=== PATIENT | female | born 1985 | race Caucasian/White ===

== ENCOUNTER 2018-11-19 22:16 | Inpatient (IN) | payer BC ==
[2018-11-19] MEDS ORDERED: Ampicillin 2 GM AdvVial IV ONE (22:56)
[2018-11-19] MEDS ORDERED: Sodium Chloride 0.9% 100 ML ONE (22:57)
[2018-11-19] MEDS ORDERED: Nalbuphine 20 MG/ML 1 ML Syringe IVPUSH PRN (23:15)
[2018-11-19] MEDS ORDERED: Sodium Chloride 0.9% 10 ML Syringe FLUSH PRN (23:15)
[2018-11-19] MEDS: Lactated Ringers 1,000 ML IV SCH (23:26)
--- NOTE | 2018-11-20 00:12 | PCM.LDHP ---
L&D History of Present Illness - General Date of Service: 11/20/18 Admit Problem/Dx: Admission Diagnosis/Problem Admission Diagnosis/Problem Source of Information: Patient History Limitations: Reports: No Limitations - History of Present Illness Introduction:: Ramila Shah is a 33-year-old 001 at 38 weeks 3 days by LMP consistent with 20 week ultrasound who presents with spontaneous rupture membranes. She reports that she had a large gush of clear fluid at around 9 PM and had continuous leaking of fluid after that initial gush of fluid. She reports that after her water broke she started have contractions that she was feeling about every 8 minutes but they are getting closer and closer together and more painful while she is on labor and delivery. She reports good movement. Timing/Duration: Reports: sudden onset (With large gush of fluid at around 9 PM on 11/19/2018), intermittent (Contractions every 3-8 minutes but getting closer and closer together) Location, : Reports: Lower back, Pelvic, Uterus Quality: Reports: Pressure, Throbbing Severity: Moderate Improves with: Reports: None Worsens with: Reports: None Associated Symptoms: Reports: vaginal fluid, large amount. Denies: vaginal bleeding, vaginal discharge Present Illness Comments:: Ramila Shah is a 33-year-old 001 at 38 weeks 3 days by LMP consistent with 20 week ultrasound who presents with spontaneous rupture membranes. She has had routine care with Dr. Burns and Lidya Garcia starting at 11 weeks gestational age. Her has overall been uncomplicated. She received the flu vaccine in May 2018 and was given TDaP vaccine on 2018. 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 MANAGER History: Reports: : 2 Para: 1 - Past Surgical History GI Surgical History: Reports: Other (See Below) (Anal gland fistulectomy) Endocrine Surgical History: Reports: Thyroidectomy (partial) Social & Family History - Tobacco Use Smoking Status *Q: Never Smoker Tobacco Use Within Last Twelve Months: No - Tobacco Core Measures Tobacco Use/Smoking Within Last 30 Days: No Smokeless Tobacco Use in Last 30 Days: No - Alcohol Use Alcohol Use History: No - Recreational Drug Use Recreational Drug Use: No Drug Use in Last 12 Months: No - Living Situation & Occupation Living situation: Reports: , with Spouse, with Family Occupation: Employed H&P Review of Systems - Review of Systems: Review Of Systems: See Below General: Denies: Fever, Chills, Malaise, Weakness, Fatigue HEENT: Denies: Headaches, Rhinitis, Post Nasal Drip, Sinus Congestion, Sore Throat, Visual Changes Pulmonary: Denies: Shortness of Breath, Wheezing, Cough Cardiovascular: Denies: Chest Pain, Palpitations, Dyspnea on Exertion Gastrointestinal: Denies: Abdominal Pain, Constipation, Diarrhea, Nausea, Vomiting Genitourinary: Denies: Dysuria, Frequency, Burning, Pain, Urgency Musculoskeletal: Denies: Back Pain Skin: Denies: Rash, Lesions Psychiatric: Denies: Depression, Anxiety Neurological: Denies: Headache Hematologic/Lymphatic: Denies: Anemia, Easy Bleeding L&D Exam - Exam Exam: See Below - Vital Signs Weight: 89.358 kg - OB Specific Contraction Duration (sec): 40-60 Contraction Frequency (min): 2-3 Contraction Intensity: Moderate to Strong Movement: Active Heart Tones: Present Heart Tones per Min: 145 (positive 15 x 15 accelerations, intermittent variable and early decelerations) Heart Rate (FHR) Variability: Moderate (6-25 bmp) Presentation: Vertex Estimated Weight: 7-7.5 lbs by Leopolds - Munoz Score Munoz Score Cervix Position: Anterior Munoz Score Consistency: Soft Munoz Score Effacement: >80% (90%) Munoz Score Dilation: > 5 cm (7 cm) Munoz Score 's Station: -3 Munoz Score Total: 10 - Exam General: Alert, Oriented HEENT: Conjunctiva Clear, EOMI Neck: Supple, Trachea Midline Lungs: Clear to Auscultation, Normal Respiratory Effort Cardiovascular: Regular Rate, Regular Rhythm GI/Abdominal Exam: Soft, Non-Tender, No Distention, Other (gravid). No: Guarding, Rigid, Rebound Genitourinary: Normal external exam Extremities: Normal Inspection, No Pedal Edema Skin: Warm, Dry, Intact Psychiatric: Alert, Normal Affect, Normal Mood - Patient Data Lab Results Last 24 hrs: Laboratory Results - last 24 hr 11/19/18 Range/Units 23:25 WBC 12.21 H (3.98-10.04) K/mm3 RBC 3.82 L (3.98-5.22) M/mm3 Hgb 11.8 (11.2-15.7) gm/L Hct 36.3 (34.1-44.9) % MCV 95.0 H (79.4-94.8) fl MCH 30.9 (25.6-32.2) pg MCHC 32.5 (32.2-35.5) g/dl RDW Std Deviation 47.4 H (36.4-46.3) fL Plt Count 218 (182-369) K/mm3 MPV 11.8 (9.4-12.3) fl Result Diagrams: 11/19/18 23:25 - Problem List (1) 38 weeks gestation of SNOMED Code(s): 19946152 ICD Code: Z3A.38 - 38 WEEKS GESTATION OF Status: Acute Current Visit: Yes (2) GBS (group B Streptococcus carrier), +RV culture, currently SNOMED Code(s): 9795534839840, 859572602, 3975565734548 ICD Code: O99.820 - STREPTOCOCCUS B CARRIER STATE COMPLICATING Status: Acute Current Visit: Yes (3) Lichen sclerosus SNOMED Code(s): 64300932 ICD Code: L90.0 - LICHEN SCLEROSUS ET ATROPHICUS Status: Acute Current Visit: Yes Problem List Initiated/Reviewed/Updated: Yes Orders Last 24hrs: Active Orders 24 hr Category Date Time Status Activity as Tolerated [RC] PFP Care 11/19/18 23:15 Active Communication Order [RC] ASDIRECTED Care 11/19/18 23:15 Active Heart Tones [RC] ASDIRECTED Care 11/19/18 23:16 Active Non Stress Test [RC] PER UNIT ROUTINE Care 11/19/18 23:15 Active Notify Provider [RC] PFP Care 11/19/18 23:15 Active Notify Provider [RC] PRN Care 11/19/18 23:15 Active Peripheral IV Care [RC] . DIRECTED Care 11/19/18 23:16 Active Vital Signs [RC] PER UNIT ROUTINE Care 11/19/18 23:15 Active Regular Diet [DIET] Diet 11/20/18 Breakfast Active RAPID PLASMA REAGIN,RPR [CHEM] Routine Lab 11/19/18 23:25 Received Ampicillin 1 gm Med 11/20/18 03:00 Active Sodium Chloride 0.9% [Normal Saline] 100 ml IV Q4H Lactated Ringers [Ringers, Lactated] 1,000 ml Med 11/19/18 23:15 Active IV ASDIRECTED Nalbuphine [Nubain] Med 11/19/18 23:15 Active 10 mg IVPUSH Q2H PRN Sodium Chloride 0.9% [Saline Flush] Med 11/19/18 23:15 Active 10 ml FLUSH ASDIRECTED PRN Electronic Heart Tones Ext w TOCO [WOMSER] Oth 11/19/18 23:15 Ordered Routine Electronic Heart Tones Internal [WOMSER] Per Unit Oth 11/19/18 23:15 Ordered Routine Peripheral IV Insertion Adult [OM.PC] Routine Oth 11/19/18 23:15 Ordered Resuscitation Status Routine Resus Stat 11/19/18 23:15 Ordered Medication Orders Ampicillin Sodium 1 gm/ Sodium (Chloride) 100 mls @ 200 mls/hr IV Q4H AVI Lactated Ringer's (Ringers, Lactated) 1,000 mls @ 100 mls/hr IV ASDIRECTED AVI Last Admin: 11/19/18 23:26 Dose: 100 mls/hr Nalbuphine HCl (Nubain) 10 mg IVPUSH Q2H PRN PRN Reason: pain Sodium Chloride (Saline Flush) 10 ml FLUSH ASDIRECTED PRN PRN Reason: Keep Vein Open Assessment/Plan Comment:: Refer to observation for spontaneous rupture of membranes Start Pitocin for augmentation of labor if contractions begin to space out or slowing of cervical dilation Continuous monitoring Place IV and have Lactated Ringer's at 125 ml/hr May have small amounts of regular diet Activity as tolerated May have epidural as desired Plans to breast-feed after delivery Start on ampicillin 2 g now and have 1 g every 4 hours after for GBS prophylaxis Anticipate vaginal delivery unless otherwise indicated Paddy Tinsley M.D. 12:20 AM 11/20/2018
[2018-11-20] MEDS ORDERED: fentaNYL 100 MCG/2 ML SDV EPIDUR PRN (00:19)
[2018-11-20] MEDS ORDERED: ePHEDrine 50 MG/ML SDV IVPUSH PRN (00:19)
[2018-11-20] MEDS ORDERED: diphenhydrAMINE 50 MG/ML SDV IVPUSH PRN (00:19)
[2018-11-20] MEDS ORDERED: fentaNYL/Bupivacaine-NS 2 MCG/ML-0.125%/PF 100 ML Bag EPIDUR SCH (00:30)
--- NOTE | 2018-11-20 00:45 | PCM.PREANE ---
Preanesthetic Assessment - Anesthesia/Transfusion/Family Hx Anesthesia History: Prior Anesthesia Without Reaction Family History of Anesthesia Reaction: No Transfusion History: No Prior Transfusion(s) - Review of Systems General: No Symptoms Pulmonary: No Symptoms Cardiovascular: No Symptoms Gastrointestinal: Abdominal Pain Neurological: No Symptoms Other: Reports: None - Physical Assessment Pulse: 89 O2 Sat by Pulse Oximetry: 98 Respiratory Rate: 22 Blood Pressure: 136/45 Temperature: 36.3 C Height: 1.55 m Weight: 89.358 kg ASA Class: 2 Mental Status: Alert & Oriented x3 Airway Class: Mallampati = 1 Dentition: Reports: Normal Dentition Thyro-Mental Finger Breadths: 3 Mouth Opening Finger Breadths: 3 ROM/Head Extension: Full Lungs: Clear to Auscultation, Normal Respiratory Effort Cardiovascular: Regular Rate, Regular Rhythm - Lab Values: Laboratory Last Values WBC 12.21 K/mm3 (3.98-10.04) H 11/19/18 23:25 RBC 3.82 M/mm3 (3.98-5.22) L 11/19/18 23:25 Hgb 11.8 gm/L (11.2-15.7) 11/19/18 23:25 Hct 36.3 % (34.1-44.9) 11/19/18 23:25 MCV 95.0 fl (79.4-94.8) H 11/19/18 23:25 MCH 30.9 pg (25.6-32.2) 11/19/18 23:25 MCHC 32.5 g/dl (32.2-35.5) 11/19/18 23:25 RDW Std Deviation 47.4 fL (36.4-46.3) H 11/19/18 23:25 Plt Count 218 K/mm3 (182-369) 11/19/18 23:25 MPV 11.8 fl (9.4-12.3) 11/19/18 23:25 - Allergies Allergies/Adverse Reactions: Allergies Allergy/AdvReac Type Severity Reaction Status Date / Time No Known Allergies Allergy Verified 11/19/18 23:14 - Anesthesia Plan Pre-Op Medication Ordered: None - Acknowledgements Anesthesia Type Planned: Spinal Pt an Appropriate Candidate for the Planned Anesthesia: Yes Alternatives and Risks of Anesthesia Discussed w Pt/Guardian: Yes Pt/Guardian Understands and Agrees with Anesthesia Plan: Yes PreAnesthesia Questionnaire - Past Health History Medical/Surgical History: Denies Medical/Surgical History Gastrointestinal History: Reports: GERD Genitourinary History: Reports: Other (See Below) (Lichen sclerosis) Other Genitourinary History: After last delivery she was unable to fully empty bladder, pt went home with an indwelling cath and leg bag. After 5 days the indwelling cath was removed and pt. 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: Reports: - Past Surgical History GI Surgical History: Reports: Other (See Below) (Anal gland fistulectomy) Endocrine Surgical History: Reports: Thyroidectomy (partial) - SUBSTANCE USE Smoking Status *Q: Never Smoker Tobacco Use Within Last Twelve Months: No Recreational Drug Use History: No - CURRENT (IN HOUSE) MEDS Current Meds: Current Medications Diphenhydramine HCl (Benadryl) 25 mg IVPUSH Q6H PRN PRN Reason: Itching Ephedrine Sulfate (Ephedrine Sulfate) 5 mg IVPUSH ASDIRECTED PRN PRN Reason: HYPOTENTSION Fentanyl (Sublimaze) 100 mcg EPIDUR Q3H PRN PRN Reason: Pain Fentanyl/Bupivacaine HCl (Eedkffqm-Apwef-Zb 2 Mcg/Ml-0.125%) 100 ml EPIDUR ASDIRECTED AVI Ampicillin Sodium 1 gm/ Sodium (Chloride) 100 mls @ 200 mls/hr IV Q4H AVI Lactated Ringer's (Ringers, Lactated) 1,000 mls @ 100 mls/hr IV ASDIRECTED AVI Last Admin: 11/19/18 23:26 Dose: 100 mls/hr Nalbuphine HCl (Nubain) 10 mg IVPUSH Q2H PRN PRN Reason: pain Sodium Chloride (Saline Flush) 10 ml FLUSH ASDIRECTED PRN PRN Reason: Keep Vein Open Discontinued Medications Ampicillin Sodium (Ampicillin) Confirm Administered Dose 2 gm IV .STK-MED ONE Stop: 11/19/18 22:57 Last Admin: 11/19/18 23:08 Dose: 2 gm Sodium Chloride (Normal Saline) Confirm Administered Dose 100 mls @ as directed .ROUTE .STK-MED ONE Stop: 11/19/18 22:58 Last Admin: 11/19/18 23:08 Dose: 100 mls/hr
[2018-11-20] MEDS: Lactated Ringers 1,000 ML IV SCH (00:51)
[2018-11-20] MEDS ORDERED: Oxytocin/Lactated Ringers 10 UNIT/1,000 ML BAG IV ONE (01:37)
[2018-11-20] MEDS ORDERED: Lidocaine 1% 50 ML MDV ONE ×2 (01:53→02:31)
[2018-11-20] MEDS ORDERED: Oxytocin 10 Units/1 ML SDV ONE (02:03)
[2018-11-20] MEDS ORDERED: Ampicillin 1 GM in Sodium Chloride 0.9% 100 ML IV SCH (03:00)
--- NOTE | 2018-11-20 03:32 | PCM.DEL ---
L & D Note - General Info Date of Service: 11/20/18 Mother's Due Date: 12/01/18 - Delivery Note Labor: Spontaneous Delivery Outcome: Livebirth Infant Delivery Method: Spontaneous Vaginal Delivery-Single Presentation: Right Occiput Anterior (KEREN) Nuchal Cord: None Anesthesia Type: Local, Spinal Anesthetic: Lidocaine (Xylocaine) 1% Plain Local Anesthetic Volume: Other (30 mL) Amniotic Fluid Description: Clear Episiotomy Type: None Laceration: 2nd Degree (midline perineal repaired with 3-0 Vicryl), Periurethral (bilateral with 2 interrupted sutures of 3-0 Vicryl on the right, running 4-0 Vicryl for mucosa bilaterally) Placenta: Intact, Spontaneous Cord: 3 Vessels Estimated Blood Loss: 400 : Suctioned, Bulb Syringe, Stimulated, Warmed, [place] Used Provider: Paddy Tinsley Score 1 min: 8 Score 5 min: 9 Second Stage Interventions: Reports: Pushing Effectively, Pushing, Knee Chest Position, Pushing, Pulls Own Legs Back Delivery Comments (Free Text/Narrative):: Stage I: Ramila Shah was admitted for spontaneous rupture of membranes with clear fluid. On admission her cervix was dilated to 6 cm. She was GBS positive and was started on ampicillin for GBS prophylaxis. She received 1 dose prior to delivery. She was given a spinal injection for anesthesia. She progressed to complete and pushing. During pushing she had injection of the midline perineum with 1% lidocaine. Stage II: On 11/20/2018 she had a normal vaginal delivery of a live female infant at 0156. Apgars of 8 & 9. Weight of 3690 g (8 lbs 2.2 oz). Length of 20 inches. There was no nuchal cord. was delivered in KEREN position. The cord was doubly clamped and cut by myself. Infant was placed on mother's abdomen. Stage III: She had a spontaneous delivery of an intact placenta in Reed presentation. Three vessel cord. She was given 10 units pitocin IM due to loss of the IV during the pushing process and fundal massage. She had a second- degree midline perineal laceration that was repaired with 3-0 Vicryl. She had bilateral periurethral lacerations. The right side laceration was repaired with 2 interrupted sutures of 3-0 Vicryl to reapproximate the tissue to close, the space that was present between the edges of the laceration. The mucosa was then reapproximated using running sutures with 4-0 Vicryl. The left side laceration was then repaired with running sutures of 4-0 Vicryl. All of the lacerations were hemostatic at the end of the procedure. Mom and baby were stable to recovery. EBL of 400 mL. Paddy Tinsley MD 3:23 AM 11/20/2018 - General Info Date of Service: 11/20/18 - Patient Data Vitals - Most Recent: Last Vital Signs Temp 36.3 C 11/20/18 00:44 Pulse 89 11/20/18 00:44 Resp 22 H 11/20/18 00:44 BP 136/45 L 11/20/18 00:44 Pulse Ox 98 11/20/18 00:44 Weight - Most Recent: 89.358 kg Lab Results Last 24 Hours: Laboratory Results - last 24 hr 11/19/18 Range/Units 23:25 WBC 12.21 H (3.98-10.04) K/mm3 RBC 3.82 L (3.98-5.22) M/mm3 Hgb 11.8 (11.2-15.7) gm/L Hct 36.3 (34.1-44.9) % MCV 95.0 H (79.4-94.8) fl MCH 30.9 (25.6-32.2) pg MCHC 32.5 (32.2-35.5) g/dl RDW Std Deviation 47.4 H (36.4-46.3) fL Plt Count 218 (182-369) K/mm3 MPV 11.8 (9.4-12.3) fl Med Orders - Current: Current Medications Diphenhydramine HCl (Benadryl) 25 mg IVPUSH Q6H PRN PRN Reason: Itching Ephedrine Sulfate (Ephedrine Sulfate) 5 mg IVPUSH ASDIRECTED PRN PRN Reason: HYPOTENTSION Fentanyl (Sublimaze) 100 mcg EPIDUR Q3H PRN PRN Reason: Pain Fentanyl/Bupivacaine HCl (Hdksbqwi-Hsfdo-So 2 Mcg/Ml-0.125%) 100 ml EPIDUR ASDIRECTED AVI Ampicillin Sodium 1 gm/ Sodium (Chloride) 100 mls @ 200 mls/hr IV Q4H AVI Lactated Ringer's (Ringers, Lactated) 1,000 mls @ 100 mls/hr IV ASDIRECTED AVI Last Admin: 11/20/18 00:51 Dose: 100 mls/hr Nalbuphine HCl (Nubain) 10 mg IVPUSH Q2H PRN PRN Reason: pain Sodium Chloride (Saline Flush) 10 ml FLUSH ASDIRECTED PRN PRN Reason: Keep Vein Open Discontinued Medications Ampicillin Sodium (Ampicillin) Confirm Administered Dose 2 gm IV .STK-MED ONE Stop: 11/19/18 22:57 Last Admin: 11/19/18 23:08 Dose: 2 gm Sodium Chloride (Normal Saline) Confirm Administered Dose 100 mls @ as directed .ROUTE .STK-MED ONE Stop: 11/19/18 22:58 Last Admin: 11/19/18 23:08 Dose: 100 mls/hr Oxytocin/Lactated Ringer's (Pitocin In Lr 10 Units/1,000 Ml) Confirm Administered Dose 10 unit in 1,000 mls @ as directed IV .STK-MED ONE Stop: 11/20/18 01:38 Lidocaine HCl (Xylocaine 1%) Confirm Administered Dose 50 ml .ROUTE .STK-MED ONE Stop: 11/20/18 01:54 Lidocaine HCl (Xylocaine 1%) Confirm Administered Dose 50 ml .ROUTE .STK-MED ONE Stop: 11/20/18 02:32 Oxytocin (Pitocin) Confirm Administered Dose 10 unit .ROUTE .STK-MED ONE Stop: 11/20/18 02:04 - Problem List & Annotations (1) 38 weeks gestation of SNOMED Code(s): 18589966 Code(s): Z3A.38 - 38 WEEKS GESTATION OF Status: Acute Current Visit: Yes (2) GBS (group B Streptococcus carrier), +RV culture, currently SNOMED Code(s): 7136819222703, 246056343, 4122394849594 Code(s): O99.820 - STREPTOCOCCUS B CARRIER STATE COMPLICATING Status: Acute Current Visit: Yes (3) Lichen sclerosus SNOMED Code(s): 53238158 Code(s): L90.0 - LICHEN SCLEROSUS ET ATROPHICUS Status: Acute Current Visit: Yes (4) Vaginal delivery SNOMED Code(s): 318039046 Code(s): O80 - ENCOUNTER FOR FULL-TERM UNCOMPLICATED DELIVERY Status: Acute Current Visit: Yes (5) Second degree perineal laceration during delivery SNOMED Code(s): 2773393 Code(s): O70.1 - SECOND DEGREE PERINEAL LACERATION DURING DELIVERY Status: Acute Current Visit: Yes (6) Laceration of periurethral tissue with delivery SNOMED Code(s): 472132630, 548046062 Code(s): O71.89 - OTHER SPECIFIED OBSTETRIC TRAUMA Status: Acute Current Visit: Yes - Problem List Review Problem List Initiated/Reviewed/Updated: Yes - My Orders Last 24 Hours: My Active Orders 11/19/18 23:15 Activity as Tolerated [RC] PFP Communication Order [RC] ASDIRECTED Notify Provider [RC] PFP Notify Provider [RC] PRN Vital Signs [RC] PER UNIT ROUTINE Lactated Ringers [Ringers, Lactated] 1,000 ml IV ASDIRECTED Nalbuphine [Nubain] 10 mg IVPUSH Q2H PRN Sodium Chloride 0.9% [Saline Flush] 10 ml FLUSH ASDIRECTED PRN Electronic Heart Tones Ext w TOCO [WOMSER] Routine Electronic Heart Tones Internal [WOMSER] Per Unit Routine Peripheral IV Insertion Adult [OM.PC] Routine Resuscitation Status Routine 11/19/18 23:16 Peripheral IV Care [RC] Q2HR 11/19/18 23:25 RAPID PLASMA REAGIN,RPR [CHEM] Routine 11/20/18 03:00 Ampicillin 1 gm Sodium Chloride 0.9% [Normal Saline] 100 ml IV Q4H 11/20/18 Breakfast Regular Diet [DIET] - Plan Plan:: Admit to inpatient following normal spontaneous vaginal delivery Continue Pitocin per unit protocol following delivery of placenta and lactated Ringer's until tolerating regular diet Regular diet Vitals per unit routine Ibuprofen and Tylenol for pain control Assist with breast-feeding as needed Continue to monitor lochia Monitor for normal urination due to bilateral periurethral lacerations Anticipate discharge home on day #2 due to receiving 1 dose of antibiotics with GBS positive status for closer monitoring of infant Paddy Tinsley MD 3:23 AM 11/20/2018
[2018-11-20] MEDS ORDERED: Benzocaine/Menthol 20%-0.5% Spray 56 GM Canister TOP PRN (03:44)
[2018-11-20] MEDS ORDERED: Lanolin 100% Cream 7 GM Tube TOP PRN (03:44)
[2018-11-20] MEDS ORDERED: Oxytocin 10 Units/1 ML SDV IM ONE (03:44)
[2018-11-20] MEDS ORDERED: Magnesium Hydroxide 400 MG/5 ML Susp 30 ML Cup PO PRN (03:44)
[2018-11-20] MEDS ORDERED: Hydrocortisone Acetate 25 MG Supp RECTAL PRN (03:44)
[2018-11-20] MEDS ORDERED: Witch Hazel Medicated Pads 40/Jar TOP PRN (03:44)
[2018-11-20] MEDS: Docusate Sodium 100 MG Cap PO PRN ×2 (04:02→19:06)
[2018-11-20] MEDS: Ibuprofen 600 MG Tab PO PRN ×4 (04:03→21:48)
[2018-11-20] MEDS: Acetaminophen 325 MG Tab PO PRN ×2 (07:16→19:06)
--- NOTE | 2018-11-20 08:42 | PCM48HPAN ---
Post Anesthesia Note - EVALUATION WITHIN 48HRS OF ANESTHETIC Vital Signs in Normal Range: Yes Patient Participated in Evaluation: Yes Respiratory Function Stable: Yes Airway Patent: Yes Cardiovascular Function Stable: Yes Hydration Status Stable: Yes Pain Control Satisfactory: Yes Nausea and Vomiting Control Satisfactory: Yes Mental Status Recovered: Yes - COMMENTS/OBSERVATIONS Free Text/Narrative:: Patient has been up ambulating. No complications noted. No further questions at this time.
[2018-11-20] MEDS: Prenatal Multivitamin with Calcium/Folic Acid/Iron Tab PO SCH (09:45)
[2018-11-20] MEDS ORDERED: Bupivacaine 0.25% 10 ML SDV ONE (16:00)
[2018-11-21] MEDS: Acetaminophen 325 MG Tab PO PRN (01:18)
[2018-11-21] MEDS: Ibuprofen 600 MG Tab PO PRN ×2 (04:00→20:08)
--- NOTE | 2018-11-21 07:11 | PCM.PNPP ---
- General Info Date of Service: 11/21/18 Functional Status: Reports: Pain Controlled, Tolerating Diet, Ambulating, Urinating - Review of Systems General: Reports: No Symptoms Pulmonary: Reports: No Symptoms Cardiovascular: Reports: No Symptoms Gastrointestinal: Reports: No Symptoms Genitourinary: Reports: No Symptoms Musculoskeletal: Reports: No Symptoms Neurological: Reports: No Symptoms - Patient Data Vital Signs - Most Recent: Last Vital Signs Temp 37.4 C 11/21/18 03:59 Pulse 77 11/21/18 03:59 Resp 14 11/21/18 03:59 BP 111/68 11/21/18 03:59 Pulse Ox 99 11/21/18 03:59 Weight - Most Recent: 89.358 kg I&O - Last 24 Hours: Intake & Output 11/20/18 11/21/18 11/21/18 22:59 06:59 14:59 Intake Total 240 Balance 240 Lab Results - Last 24 Hours: Laboratory Results - last 24 hr 11/19/18 11/20/18 Range/Units 23:25 10:04 WBC 16.57 H (3.98-10.04) K/mm3 RBC 3.71 L (3.98-5.22) M/mm3 Hgb 11.4 (11.2-15.7) gm/L Hct 35.3 (34.1-44.9) % MCV 95.1 H (79.4-94.8) fl MCH 30.7 (25.6-32.2) pg MCHC 32.3 (32.2-35.5) g/dl RDW Std Deviation 48.0 H (36.4-46.3) fL Plt Count 211 (182-369) K/mm3 MPV 11.3 (9.4-12.3) fl Neut % (Auto) 84.6 H (34.0-71.1) % Lymph % (Auto) 8.4 L (19.3-51.7) % [place]cock % (Auto) 6.7 (4.7-12.5) % Eos % (Auto) 0 L (0.7-5.8) Baso % (Auto) 0.1 (0.1-1.2) % Neut # (Auto) 14.01 H (1.56-6.13) K/mm3 Lymph # (Auto) 1.40 (1.18-3.74) K/mm3 [place] # (Auto) 1.11 H (0.24-0.36) K/mm3 Eos # (Auto) 0.00 L (0.04-0.36) K/mm3 Baso # (Auto) 0.02 (0.01-0.08) K/mm3 Manual Slide Review Normal smear RPR Non-reactive (NONREACTIVE) Med Orders - Current: Current Medications Acetaminophen (Tylenol) 650 mg PO Q6H PRN PRN Reason: mild pain or fever Last Admin: 11/21/18 01:18 Dose: 650 mg Benzocaine/Menthol (Dermoplast Pain Relief [place]) 0 gm TOP ASDIRECTED PRN PRN Reason: Perineal Comfort Measure Last Admin: 11/20/18 04:01 Dose: 1 can Docusate Sodium (Colace) 100 mg PO BID PRN PRN Reason: Constipation Last Admin: 11/20/18 19:06 Dose: 100 mg Emollient Ointment (Lansinoh Hpa) 0 gm TOP ASDIRECTED PRN PRN Reason: Sore Nipples Hydrocortisone Acetate (Anucort-Hc) 25 mg RECTAL BID PRN PRN Reason: Hemorrhoid pain Ibuprofen (Motrin) 600 mg PO Q6H PRN PRN Reason: Mild pain or fever Last Admin: 11/21/18 04:00 Dose: 600 mg Magnesium Hydroxide (Milk Of Magnesia) 30 ml PO BEDTIME PRN PRN Reason: Constipation Prenat Multivit/[place]/Iron/Folic Ac ( Plus Iron) 1 each PO DAILY [facility] Last Admin: 11/20/18 09:45 Dose: Not Given Jaren Uriostegui (Neo) 1 pad TOP ASDIRECTED PRN PRN Reason: Perineal Comfort Measure Last Admin: 11/20/18 04:01 Dose: 1 bottle Discontinued Medications Ampicillin Sodium (Ampicillin) Confirm Administered Dose 2 gm IV .STK-MED ONE Stop: 11/19/18 22:57 Last Admin: 11/19/18 23:08 Dose: 2 gm Diphenhydramine HCl (Benadryl) 25 mg IVPUSH Q6H PRN PRN Reason: Itching Ephedrine Sulfate (Ephedrine Sulfate) 5 mg IVPUSH ASDIRECTED PRN PRN Reason: HYPOTENTSION Fentanyl (Sublimaze) 100 mcg EPIDUR Q3H PRN PRN Reason: Pain Fentanyl/Bupivacaine HCl (Oolmbazh-Ejyvx-Jk 2 Mcg/Ml-0.125%) 100 ml EPIDUR ASDIRECTED [facility] Sodium Chloride (Normal Saline) Confirm Administered Dose 100 mls @ as directed .ROUTE .STK-MED ONE Stop: 11/19/18 22:58 Last Admin: 11/19/18 23:08 Dose: 100 mls/hr Ampicillin Sodium 1 gm/ Sodium (Chloride) 100 mls @ 200 mls/hr IV Q4H [facility] Last Admin: 11/20/18 05:16 Dose: Not Given Lactated Ringer's (Ringers, Lactated) 1,000 mls @ 100 mls/hr IV ASDIRECTED [facility] Last Admin: 11/20/18 00:51 Dose: 100 mls/hr Oxytocin/Lactated Ringer's (Pitocin In Lr 10 Units/1,000 Ml) Confirm Administered Dose 10 unit in 1,000 mls @ as directed IV .STK-MED ONE Stop: 11/20/18 01:38 Last Admin: 11/20/18 02:05 Dose: Not Given Lidocaine HCl (Xylocaine 1%) Confirm Administered Dose 50 ml .ROUTE .STK-MED ONE Stop: 11/20/18 01:54 Last Admin: 11/20/18 02:00 Dose: 50 ml Lidocaine HCl (Xylocaine 1%) Confirm Administered Dose 50 ml .ROUTE .STK-MED ONE Stop: 11/20/18 02:32 Last Admin: 11/20/18 02:35 Dose: 50 ml Nalbuphine HCl (Nubain) 10 mg IVPUSH Q2H PRN PRN Reason: pain Oxytocin (Pitocin) Confirm Administered Dose 10 unit .ROUTE .STK-MED ONE Stop: 11/20/18 02:04 Last Admin: 11/20/18 02:18 Dose: 10 unit Oxytocin (Pitocin) 10 unit IM ONETIME ONE Stop: 11/20/18 03:45 Sodium Chloride (Saline Flush) 10 ml FLUSH ASDIRECTED PRN PRN Reason: Keep Vein Open - Infant Interaction Disposition, : [place] in Room with Family Infant Interaction: Holding Infant Infant Feeding: Attempted ; Nursed Fair/Poor Support Person: - Recovery Exam Fundal Tone: Firm Fundal Level: 3 Fingerbreadths Below Umbilicus Fundal Placement: Midline Lochia Amount: Small Lochia Color: Rubra/Red Perineum Description: Edematous, Other (see below) Other Perinuem Description: 2nd degree lac w/repair Episiotomy/Laceration: Approximated Bladder Status: Nonpalpable, Voiding Urinary Elimination: Voided - Exam General: Alert, Oriented, Cooperative GI/Abdominal Exam: Soft, Non-Tender Extremities: Normal Inspection Skin: Warm, Dry, Intact - Problem List & Annotations (1) 38 weeks gestation of SNOMED Code(s): 79126731 Code(s): Z3A.38 - 38 WEEKS GESTATION OF Status: Acute Current Visit: Yes (2) GBS (group B Streptococcus carrier), +RV culture, currently SNOMED Code(s): 4692145216741, 620488764, 5441819443325 Code(s): O99.820 - STREPTOCOCCUS B CARRIER STATE COMPLICATING Status: Acute Current Visit: Yes - Problem List Review Problem List Initiated/Reviewed/Updated: Yes - Assessment Assessment:: PPD#1 from - Plan Plan:: * Routine cares * Encourage breast feeding * Discharge home tomorrow
[2018-11-21] MEDS: Prenatal Multivitamin with Calcium/Folic Acid/Iron Tab PO SCH (08:17)
[2018-11-21] MEDS: Docusate Sodium 100 MG Cap PO PRN (23:22)
--- NOTE | 2018-11-22 06:29 | PCM.PNPP ---
- General Info Date of Service: 11/22/18 Functional Status: Reports: Pain Controlled, Tolerating Diet, Ambulating, Urinating - Review of Systems General: Reports: No Symptoms Pulmonary: Reports: No Symptoms Cardiovascular: Reports: No Symptoms Gastrointestinal: Reports: No Symptoms Genitourinary: Reports: No Symptoms Musculoskeletal: Reports: No Symptoms Neurological: Reports: No Symptoms - Patient Data Vital Signs - Most Recent: Last Vital Signs Temp 37.3 C 11/22/18 05:13 Pulse 79 11/22/18 05:13 Resp 14 11/22/18 05:13 BP 124/71 11/22/18 05:13 Pulse Ox 95 11/22/18 05:13 Weight - Most Recent: 89.358 kg I&O - Last 24 Hours: Intake & Output 11/21/18 11/21/18 11/22/18 14:59 22:59 06:59 Intake Total 120 Balance 120 Med Orders - Current: Current Medications Acetaminophen (Tylenol) 650 mg PO Q6H PRN PRN Reason: mild pain or fever Last Admin: 11/21/18 01:18 Dose: 650 mg Benzocaine/Menthol (Dermoplast Pain Relief [place]) 0 gm TOP ASDIRECTED PRN PRN Reason: Perineal Comfort Measure Last Admin: 11/20/18 04:01 Dose: 1 can Docusate Sodium (Colace) 100 mg PO BID PRN PRN Reason: Constipation Last Admin: 11/21/18 23:22 Dose: 100 mg Emollient Ointment (Lansinoh Hpa) 0 gm TOP ASDIRECTED PRN PRN Reason: Sore Nipples Hydrocortisone Acetate (Anucort-Hc) 25 mg RECTAL BID PRN PRN Reason: Hemorrhoid pain Ibuprofen (Motrin) 600 mg PO Q6H PRN PRN Reason: Mild pain or fever Last Admin: 11/21/18 20:08 Dose: 600 mg Magnesium Hydroxide (Milk Of Magnesia) 30 ml PO BEDTIME PRN PRN Reason: Constipation Prenat Multivit/[place]/Iron/Folic Ac ( Plus Iron) 1 each PO DAILY [facility]I Last Admin: 11/21/18 08:17 Dose: Not Given [place] G[place] (Tucks) 1 pad TOP ASDIRECTED PRN PRN Reason: Perineal Comfort Measure Last Admin: 11/20/18 04:01 Dose: 1 bottle Discontinued Medications Ampicillin Sodium (Ampicillin) Confirm Administered Dose 2 gm IV .STK-MED ONE Stop: 11/19/18 22:57 Last Admin: 11/19/18 23:08 Dose: 2 gm Diphenhydramine HCl (Benadryl) 25 mg IVPUSH Q6H PRN PRN Reason: Itching Ephedrine Sulfate (Ephedrine Sulfate) 5 mg IVPUSH ASDIRECTED PRN PRN Reason: HYPOTENTSION Fentanyl (Sublimaze) 100 mcg EPIDUR Q3H PRN PRN Reason: Pain Fentanyl/Bupivacaine HCl (Arqvydia-Wbssp-Kv 2 Mcg/Ml-0.125%) 100 ml EPIDUR ASDIRECTED [facility] Sodium Chloride (Normal Saline) Confirm Administered Dose 100 mls @ as directed .ROUTE .STTastemaker-MED ONE Stop: 11/19/18 22:58 Last Admin: 11/19/18 23:08 Dose: 100 mls/hr Ampicillin Sodium 1 gm/ Sodium (Chloride) 100 mls @ 200 mls/hr IV Q4H [facility] Last Admin: 11/20/18 05:16 Dose: Not Given Lactated Ringer's (Ringers, Lactated) 1,000 mls @ 100 mls/hr IV ASDIRECTED [facility] Last Admin: 11/20/18 00:51 Dose: 100 mls/hr Oxytocin/Lactated Ringer's (Pitocin In Lr 10 Units/1,000 Ml) Confirm Administered Dose 10 unit in 1,000 mls @ as directed IV .STTastemaker-MED ONE Stop: 11/20/18 01:38 Last Admin: 11/20/18 02:05 Dose: Not Given Lidocaine HCl (Xylocaine 1%) Confirm Administered Dose 50 ml .ROUTE .STK-MED ONE Stop: 11/20/18 01:54 Last Admin: 11/20/18 02:00 Dose: 50 ml Lidocaine HCl (Xylocaine 1%) Confirm Administered Dose 50 ml .ROUTE .STK-MED ONE Stop: 11/20/18 02:32 Last Admin: 11/20/18 02:35 Dose: 50 ml Nalbuphine HCl (Nubain) 10 mg IVPUSH Q2H PRN PRN Reason: pain Oxytocin (Pitocin) Confirm Administered Dose 10 unit .ROUTE .STK-MED ONE Stop: 11/20/18 02:04 Last Admin: 11/20/18 02:18 Dose: 10 unit Oxytocin (Pitocin) 10 unit IM ONETIME ONE Stop: 11/20/18 03:45 Sodium Chloride (Saline Flush) 10 ml FLUSH ASDIRECTED PRN PRN Reason: Keep Vein Open - Interaction Infant Disposition, : in Room with Family Infant Interaction: Holding Infant Infant Feeding: Attempted ; Nursed Fair/Poor Support Person: - Recovery Exam Fundal Tone: Firm Fundal Level: 2 Fingerbreadths Below Umbilicus Fundal Placement: Midline Lochia Amount: Scant, Small Lochia Color: Rubra/Red Perineum Description: Other (see below) Other Perinuem Description: 2nd degree lac w/repair Episiotomy/Laceration: Approximated Bladder Status: Nonpalpable, Voiding Urinary Elimination: Voided - Exam General: Alert, Oriented, Cooperative GI/Abdominal Exam: Soft, Non-Tender Extremities: Normal Inspection Skin: Warm, Dry, Intact - Problem List & Annotations (1) 38 weeks gestation of SNOMED Code(s): 32314301 Code(s): Z3A.38 - 38 WEEKS GESTATION OF Status: Acute Current Visit: Yes (2) GBS (group B Streptococcus carrier), +RV culture, currently SNOMED Code(s): 2624890349150, 259582656, [id number] Code(s): O99.820 - STREPTOCOCCUS B CARRIER STATE COMPLICATING Status: Acute Current Visit: Yes - Problem List Review Problem List Initiated/Reviewed/Updated: Yes - Assessment Assessment:: PPD#2 from - Plan Plan:: * Routine cares * Encourage breast feeding * Discharge home today
--- NOTE | 2018-11-22 06:32 | PCM.DCSUM1 ---
Discharge Summary - Discharge Data Discharge Date: 11/22/18 Discharge Disposition: Home, Self-Care 01 Condition: Good - Discharge Diagnosis/Problem(s) (1) 38 weeks gestation of SNOMED Code(s): 34137359 ICD Code: Z3A.38 - 38 WEEKS GESTATION OF Status: Acute Current Visit: Yes (2) GBS (group B Streptococcus carrier), +RV culture, currently SNOMED Code(s): 2820167420256, 259279935, 4093710201686 ICD Code: O99.820 - STREPTOCOCCUS B CARRIER STATE COMPLICATING Status: Acute Current Visit: Yes - Patient Summary/Data Complications: None Consults: None Recommended Follow-up Testing/Procedures: Follow up in 2 weeks for check Hospital Course: 33 y/o presented at 38 3/7 wks with SROM. She progressed well and underwent an uncomplicated . See delivery note for full details. she did well and was discharged home on PPD#2 - Patient Instructions Diet: Regular Diet as Tolerated Activity: As Tolerated Activity, Other: Pelvic Rest for 6 weeks Driving: May Drive Today Showering/Bathing: May Shower Showering/Bathing, Other: May bathe Notify Provider of: Fever, Increased Pain, Swelling and Redness, Drainage, Nausea and/or Vomiting - Discharge Plan *PRESCRIPTION DRUG MONITORING PROGRAM REVIEWED*: Not Applicable *COPY OF PRESCRIPTION DRUG MONITORING REPORT IN PATIENT ANGELINA: Not Applicable Home Medications: Home Meds Pnv No.95/Ferrous Fum/Folic AC [ Caplet] 1 each PO 11/20/18 [History] Docusate Sodium [Colace] 100 mg PO BID PRN cap 11/22/18 [Rx] Ibuprofen [Motrin] 600 mg PO Q6H PRN tablet 11/22/18 [Rx] Referrals: Mike Burns MD [Physician] - (2 weeks for post check ) - Discharge Summary/Plan Comment DC Time >30 min.: No - Patient Data Vitals - Most Recent: Last Vital Signs Temp 37.3 C 11/22/18 05:13 Pulse 79 11/22/18 05:13 Resp 14 11/22/18 05:13 BP 124/71 11/22/18 05:13 Pulse Ox 95 11/22/18 05:13 Weight - Most Recent: 89.358 kg I&O - Last 24 hours: Intake & Output 11/21/18 11/21/18 11/22/18 14:59 22:59 06:59 Intake Total 120 Balance 120 Med Orders - Current: Current Medications Acetaminophen (Tylenol) 650 mg PO Q6H PRN PRN Reason: mild pain or fever Last Admin: 11/21/18 01:18 Dose: 650 mg Benzocaine/Menthol (Dermoplast Pain Relief [place]) 0 gm TOP ASDIRECTED PRN PRN Reason: Perineal Comfort Measure Last Admin: 11/20/18 04:01 Dose: 1 can Docusate Sodium (Colace) 100 mg PO BID PRN PRN Reason: Constipation Last Admin: 11/21/18 23:22 Dose: 100 mg Emollient Ointment (Lansinoh Hpa) 0 gm TOP ASDIRECTED PRN PRN Reason: Sore Nipples Hydrocortisone Acetate (Anucort-Hc) 25 mg RECTAL BID PRN PRN Reason: Hemorrhoid pain Ibuprofen (Motrin) 600 mg PO Q6H PRN PRN Reason: Mild pain or fever Last Admin: 11/21/18 20:08 Dose: 600 mg Magnesium Hydroxide (Milk Of Magnesia) 30 ml PO BEDTIME PRN PRN Reason: Constipation Prenat Multivit/[place]/Iron/Folic Ac ( Plus Iron) 1 each PO DAILY [facility] Last Admin: 11/21/18 08:17 Dose: Not Given Jaren Uriostegui (Tucks) 1 pad TOP ASDIRECTED PRN PRN Reason: Perineal Comfort Measure Last Admin: 11/20/18 04:01 Dose: 1 bottle Discontinued Medications Ampicillin Sodium (Ampicillin) Confirm Administered Dose 2 gm IV .STK-MED ONE Stop: 11/19/18 22:57 Last Admin: 11/19/18 23:08 Dose: 2 gm Diphenhydramine HCl (Benadryl) 25 mg IVPUSH Q6H PRN PRN Reason: Itching Ephedrine Sulfate (Ephedrine Sulfate) 5 mg IVPUSH ASDIRECTED PRN PRN Reason: HYPOTENTSION Fentanyl (Sublimaze) 100 mcg EPIDUR Q3H PRN PRN Reason: Pain Fentanyl/Bupivacaine HCl (Mzxgcoxh-Aidnt-Xt 2 Mcg/Ml-0.125%) 100 ml EPIDUR ASDIRECTED [facility] Sodium Chloride (Normal Saline) Confirm Administered Dose 100 mls @ as directed .ROUTE .STK-MED ONE Stop: 11/19/18 22:58 Last Admin: 11/19/18 23:08 Dose: 100 mls/hr Ampicillin Sodium 1 gm/ Sodium (Chloride) 100 mls @ 200 mls/hr IV Q4H [facility] Last Admin: 11/20/18 05:16 Dose: Not Given Lactated Ringer's (Ringers, Lactated) 1,000 mls @ 100 mls/hr IV ASDIRECTED [facility] Last Admin: 11/20/18 00:51 Dose: 100 mls/hr Oxytocin/Lactated Ringer's (Pitocin In Lr 10 Units/1,000 Ml) Confirm Administered Dose 10 unit in 1,000 mls @ as directed IV .STK-MED ONE Stop: 11/20/18 01:38 Last Admin: 11/20/18 02:05 Dose: Not Given Lidocaine HCl (Xylocaine 1%) Confirm Administered Dose 50 ml .ROUTE .STK-MED ONE Stop: 11/20/18 01:54 Last Admin: 11/20/18 02:00 Dose: 50 ml Lidocaine HCl (Xylocaine 1%) Confirm Administered Dose 50 ml .ROUTE .STK-MED ONE Stop: 11/20/18 02:32 Last Admin: 11/20/18 02:35 Dose: 50 ml Nalbuphine HCl (Nubain) 10 mg IVPUSH Q2H PRN PRN Reason: pain Oxytocin (Pitocin) Confirm Administered Dose 10 unit .ROUTE .STK-MED ONE Stop: 11/20/18 02:04 Last Admin: 11/20/18 02:18 Dose: 10 unit Oxytocin (Pitocin) 10 unit IM ONETIME ONE Stop: 11/20/18 03:45 Sodium Chloride (Saline Flush) 10 ml FLUSH ASDIRECTED PRN PRN Reason: Keep Vein Open
[2018-11-22] MEDS: Prenatal Multivitamin with Calcium/Folic Acid/Iron Tab PO SCH (08:07)
== END 2018-11-22 09:55 | disposition home or self-care (01) | DRG 560 ==
LOC: JD.OBCHECK 22:16 → JD.OB 22:18 → JD.OBCHECK 11-20 01:56
PROVIDERS: ADMIT Obstetrics & Gynecology; ATTEND Obstetrics & Gynecology
PROC: 0KQM0ZZ Repair Perineum Muscle, Open Approach (ICD-10-PCS; principal; 2018-11-20)
PROC: 10E0XZZ Delivery of Products of Conception, External Approach (ICD-10-PCS; principal; 2018-11-20)
PROC: 0UQMXZZ Repair Vulva, External Approach (ICD-10-PCS; principal; 2018-11-20)
PROC: 00HU33Z Insertion of Infusion Device into Spinal Canal, Percutaneous Approach (ICD-10-PCS; 2018-11-20)
PROC: 3E0R3BZ Introduction of Anesthetic Agent into Spinal Canal, Percutaneous Approach (ICD-10-PCS; 2018-11-20)
DX: O99.824 Streptococcus B carrier state complicating childbirth (principal); O99.284 Endocrine, nutritional and metabolic diseases complicating childbirth; Z3A.38 38 weeks gestation of pregnancy; Z37.0 Single live birth; E89.0 Postprocedural hypothyroidism; O75.89 Other specified complications of labor and delivery; L90.0 Lichen sclerosus et atrophicus; O70.1 Second degree perineal laceration during delivery; O71.82 Other specified trauma to perineum and vulva; O99.62 Diseases of the digestive system complicating childbirth; K21.9 Gastro-esophageal reflux disease without esophagitis
CPT/HCPCS: 36415; 51701; 59025; 59409; 85025; 85027; 86592; A9270-GY; J0290; J2001; J2590; J3490; J7030; J7120